=== PATIENT | male | born 1955 | race Caucasian/White ===

== ENCOUNTER 2016-03-22 22:13 | Emergency (ER) | payer OTHER ==
[~2016-03-22] VITALS: Ht 182.8 cm; Wt 104.3 kg
--- NOTE | ~2016-03-22 | EKG ---
[place], [place] ELECTROCARDIOGRAM REPORT NAME: NÉSTOR MEDEROS UNIT #: [id number] ROOM: DOCTOR: BILL CALLOWAY MD BIRTHDATE: [birth year] DOS: 03/22/2016 TIME: 2341 hours. Normal sinus rhythm at 74 beats per minute. An intraventricular conduction defect with QRS of 132 milliseconds. An abnormal ECG. No previous tracing is available for comparison. BILL CALLOWAY MD CM:EKGRPT:ELECTROCARDIOGRAM REPORT [id number] BILL CALLOWAY MD
[~2016-03-22 22:13] MED LIST: ASPIRIN ADULT L81 M1 PO; AUGMENTIN 500 M1 TAB PO; B12100 MC1 PO; FLEXERIL5 MG PO; LEVETIRACETAM250 MG PO; LORAZEPAM1 MG PO; MOTRIN800 MG PO; NITROSTAT0.4 MG SL; NORCO 10-325 T1 EACH PO; NORVASC5 MG PO; OMEPRAZOLE D/R20 MG PO; PREDNISONE20 M1 PO; PROAIR HFA8.5 GM IH; ROBITUSSIN AC 110 ML PO; TAGAMET400 MG PO; TRAMADOL HCL50 MG PO; VIBRAMYCIN100 MG PO; ZOCOR20 MG PO
[2016-03-23 00:13] LABS: BASO % 0.3 % (0.0-1.0); EOS # 0.1 10*3/uL (0.0-0.4); EOS % 0.3 % (1.0-4.0); HEMATOCRIT 42.8 % (42.0-52.0); IG # 0.1 10*3/uL (0.0-0.1); LYMPH # 0.8 10*3/uL (1.3-4.4); MEAN CELL VOLUME 94.7 fl (80.0-94.0); MEAN CORPUSCULAR HGB CONC 32.7 g/dl (33.0-37.0); MEAN PLATELET VOLUME 11.2 fl (9.6-12.3); MONO # 0.7 10*3/uL (0.1-1.0); MONO % 4.3 % (3.0-9.0); NEUT # 13.7 10*3/uL (2.3-7.9); NEUT % 89.6 % (47.0-73.0); PLATELET COUNT AUTOMATED 208 10*3/uL (130-400); RED BLOOD COUNT 4.52 10*6/uL (4.50-5.90); RED CELL DISTRI WIDTH 12.7 % (0-14.5); WHITE BLOOD COUNT 15.3 10*3/uL (4.8-10.8)
[2016-03-23 00:26] LABS: PROTHROMBIN TIME 10.2 SECONDS (9.0-12.4)
[2016-03-23 00:36] LABS: ALBUMIN 3.9 gm/dl (3.1-4.5); ALKALINE PHOSPHATASE 52 U/L (45-117); BILIRUBIN, TOTAL 0.3 mg/dl (0.2-1.0); BUN 20 mg/dl (7-24); CARBON DIOXIDE 30 mmol/L (21-32); CHLORIDE 102 mmol/L (98-107); CKMB 1.1 ng/ml (0.5-3.6); CPK 56 U/L (39-308); EST GLOM FILT AFRICAN AMERICAN > 60 ml/min; GLUCOSE 178 mg/dL (65-99); MAGNESIUM 2.1 mg/dL (1.5-2.1); POTASSIUM 4.4 mmol/L (3.5-5.1); SGOT/AST 8 IU/L (3-35); SGPT/ALT 22 U/L (12-78); SODIUM 139 mmol/L (136-145); TOTAL PROTEIN 7.1 gm/dL (6.4-8.2)
[2016-03-23 00:41] LABS: TROPONIN I < 0.015 ng/ml (<0.5)
[2016-03-23 02:29] LABS: BILIRUBIN NEGATIVE (NEGATIVE); BLOOD NEGATIVE (NEGATIVE); CLARITY SL CLOUDY (CLEAR); COLOR YELLOW (YELLOW); GLUCOSE NEGATIVE (NEGATIVE); KETONE TRACE (NEGATIVE); LEUKO ESTERASE NEGATIVE (NEGATIVE); NITRITE NEGATIVE (NEGATIVE); PROTEIN 1+ (NEGATIVE)
[2016-03-23 02:39] LABS: HYALINE CAST 45-50; URINE REFLEX COMMENT NO (NO)
== END 2016-03-23 05:36 | disposition short-term general hospital (02) ==
LOC: ED 22:13
PROVIDERS: Nurse Practitioner Family
DX: G40.909 Epilepsy, unspecified, not intractable, without status epilepticus (principal); F17.200 Nicotine dependence, unspecified, uncomplicated; F41.1 Generalized anxiety disorder; I10 Essential (primary) hypertension; J44.9 Chronic obstructive pulmonary disease, unspecified; E78.00 Pure hypercholesterolemia, unspecified; Z79.82 Long term (current) use of aspirin; Z98.890 Other specified postprocedural states

== ENCOUNTER 2019-03-14 18:05 | Emergency (ER) | payer MEDICARE ==
[~2019-03-14] VITALS: Ht 182.8 cm; Wt 99.8 kg
[2019-03-14] MEDS ORDERED: LISINOPRIL5 MG PO (18:42)
[2019-03-14] MEDS ORDERED: DULOXETINE HCL60 MG PO (18:43)
[2019-03-14] MEDS ORDERED: ATORVASTATIN CA80 M1 PO (18:43)
[2019-03-14] MEDS ORDERED: MELATONIN3 M3 PO (18:44)
[2019-03-14 18:45] LABS: BASO % 0.3 % (0.0-1.0); EOS % 0.1 % (1.0-4.0); HEMATOCRIT 47.1 % (42.0-52.0); HEMOGLOBIN 15.3 g/dl (14.0-18.0); LYMPH # 0.8 10*3/uL (1.3-4.4); LYMPH % 11.9 % (27.0-41.0); MEAN CORPUSCULAR HGB 29.9 pg (27.0-31.0); MEAN CORPUSCULAR HGB CONC 32.5 g/dl (33.0-37.0); MEAN PLATELET VOLUME 11.2 fl (9.6-12.3); MONO # 0.4 10*3/uL (0.1-1.0); NEUT # 5.7 10*3/uL (2.3-7.9); NEUT % 81.4 % (47.0-73.0); PLATELET COUNT AUTOMATED 232 10*3/uL (130-400); RED BLOOD COUNT 5.12 10*6/uL (4.50-5.90); RED CELL DISTRI WIDTH 12.4 % (0-14.5)
[2019-03-14] MEDS ORDERED: METFORMIN HCL500 M2 PO (18:45)
[2019-03-14] MEDS ORDERED: VITAMIN D350 MC1 PO (18:46)
[2019-03-14] MEDS ORDERED: NAPROXEN500 M1 PO (18:46)
[2019-03-14] MEDS ORDERED: FISH OIL CONC1000 M1 PO (18:47)
[2019-03-14 18:56] LABS: ACT PARTIAL THROMBO TIME 22.7 SECONDS (20.0-32.1); INTERNATIONAL NORM RATIO 0.9 (2.0-3.5)
[2019-03-14 19:24] LABS: ALBUMIN 3.8 gm/dl (3.1-4.5); ALKALINE PHOSPHATASE 83 U/L (45-117); BUN 22 mg/dl (7-24); CHLORIDE 101 mmol/L (98-107); CREATININE 1.27 mg/dL (0.70-1.30); LIPASE 90 U/L (73-393); POTASSIUM 3.6 mmol/L (3.5-5.1); SGOT/AST 18 IU/L (3-35); SGPT/ALT 33 U/L (12-78); SODIUM 137 mmol/L (136-145); TOTAL PROTEIN 7.4 gm/dL (6.4-8.2); TROPONIN I < 0.015 ng/ml (<0.045)
== END 2019-03-14 20:05 | disposition short-term general hospital (02) ==
LOC: ED 18:05
PROVIDERS: Nurse Practitioner Family
DX: I63.9 Cerebral infarction, unspecified (principal); R42 Dizziness and giddiness; I25.2 Old myocardial infarction; E78.5 Hyperlipidemia, unspecified; E11.9 Type 2 diabetes mellitus without complications; I10 Essential (primary) hypertension; J44.9 Chronic obstructive pulmonary disease, unspecified; F17.200 Nicotine dependence, unspecified, uncomplicated; Z79.82 Long term (current) use of aspirin; Z79.899 Other long term (current) drug therapy; Z98.61 Coronary angioplasty status

== ENCOUNTER 2019-11-22 14:34 | Inpatient (IN) | payer OTHER, MEDICARE ==
[~2019-11-22] VITALS: Ht 172.7 cm; Wt 112.9 kg
[~2019-11-22 14:34] MED LIST changes: +ATORVASTATIN CA80 M1 PO; +DULOXETINE HCL60 MG PO; +FISH OIL CONC1000 M1 PO; +LISINOPRIL5 MG PO; +MELATONIN3 M3 PO; +METFORMIN HCL500 M2 PO; +NAPROXEN500 M1 PO; +VITAMIN D350 MC1 PO
[2019-11-22 14:37] VITALS: BP 165/127
--- NOTE | 2019-11-22 14:58 | NUR ---
THE PATIENT WAS GIVEN TWO CUPS OF ORANGE JUICE WITH 2 ADDED SUGARS TO EACH CUP
[2019-11-22 15:08] LABS: BASO % 0.3 % (0.0-1.0); EOS # 0.1 10*3/uL (0.0-0.4); EOS % 0.5 % (1.0-4.0); HEMATOCRIT 34.3 % (42.0-52.0); LYMPH # 0.3 10*3/uL (1.3-4.4); MEAN CORPUSCULAR HGB 28.1 pg (27.0-31.0); MEAN CORPUSCULAR HGB CONC 30.9 g/dl (33.0-37.0); MEAN PLATELET VOLUME 9.2 fl (9.6-12.3); MONO # 0.9 10*3/uL (0.1-1.0); NEUT # 9.7 10*3/uL (2.3-7.9); NEUT % 87.4 % (47.0-73.0); PLATELET COUNT AUTOMATED 459 10*3/uL (130-400); RED BLOOD COUNT 3.77 10*6/uL (4.50-5.90); RED CELL DISTRI WIDTH 13.4 % (0-14.5)
--- NOTE | 2019-11-22 15:20 | NUR ---
THE PATIENT WAS GIVEN HIS LUNCH TRAY
[2019-11-22 15:23] VITALS: BP 140/80
[2019-11-22 15:27] LABS: ALBUMIN 2.1 gm/dl (3.1-4.5); CREATININE 11.2 mg/dL (0.70-1.30); TOTAL PROTEIN 6.5 gm/dL (6.4-8.2)
--- NOTE | 2019-11-22 16:11 | NUR ---
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
[2019-11-22 16:53] VITALS: BP 140/80
[2019-11-22 17:10] VITALS: BP 140/80
--- NOTE | 2019-11-22 17:10 | NUR ---
A 63 YO MALE, admitted to , under the services of CLEM Neumann DO with a diagnosis of 1710. Chief complaint is LOW BLOOD SUGAR THIS MORNING, DIFFICULTY URINATING. Patient arrived via stretcher from ER. Monitor applied. Initial assessment completed. Vital signs taken and recorded. CLEM NEUMANN DO notified of admission to the unit. Orders received. See assessment for past medical history, medications and allergies. Patient and/or family oriented to unit. [facility]. Clothing/patient valuable form completed. MARGARITA SAUCEDA
--- NOTE | 2019-11-22 17:55 | NUR ---
ATTEMPTED SINCLAIR CATHETER INSERTION W/16FRENCH, UNSUCCESSFUL DUE TO MEETING RESISTANCE. ATTEMPTED INSERTION OF COUDE CATHETER, DR. REED ALSO ATTEMPTED THE INSERTION OF COUDE CATHETER, UNSUCCESSFUL DUE TO MEETING RESISTANCE. PATIENT THEN TO CT FOR CT ABDOMEN TO ASSESS BLADDER. DR. REED SPEAKING WITH DR. DENT RE: CATHETER INSERTION. WILL ATTEMPT STRAIGHT CATHETERIZATION WHEN PATIENT RETURNS FROM CT. URINE SAMPLES ARE ORDERED FOR WHEN/IF URINE OBTAINED.
--- NOTE | 2019-11-22 18:29 | NUR ---
PATIENT RETURNED FROM CT, ATTEMPTED TO STRAIGHT CATHETERIZE, UNSUCCESSFUL DUE TO RESISTANCE MET. DR. PEMBERTON AND DR. DENT NOTIFIED. BLADDER SCANNED FOR 113ML URINE AND NOTIFIED DR. DENT OF RESULT. OBTAINED ORDER FROM DR. DENT TO CALL RESULT OF CT ABDOMEN AND HOLD IVF'S UNTIL THE RESULT IS CALLED TO HER. PER DR. DENT PATIENT MAY NEED TRANSFERRED TO [facility], [facility], OR [facility] FOR SERVICES OF A UROLOGIST DEPENDING ON THE CT SCAN.
--- NOTE | 2019-11-22 18:43 | NUR ---
SPOKE WITH PATIENT'S RE: PATIENT'S HOME MEDS LIST. PER HER, PATIENT IS AWAITING BLADDER SURGICAL INTERVENTION, [facility] ARE AWAITING MEDICAL CLEARANCE FROM NEUROLOGIST RE: SEIZURE DISORDER, DIRECTOR RADIATION ONCOLOGY, AND STAPLER HAND RE: HIGH POTASSIUM. PER HER, PATIENT HAS HAD THIS PAST WEEK LABS, EKG AND A CT ABDOMEN AT [facility]. DR. PEMBERTON MADE AWARE OF THIS, AND PER DR. PEMBERTON, ARRANGEMENTS ARE BEING MADE TO TRANSFER TO [facility].
--- NOTE | 2019-11-22 18:52 | NUR ---
MULTIPLE SCABBED AREAS TO RIGHT UPPER AND FOREARM, RIGHT DECKER AND LEFT ANKLE. PATIENT STATES DOG SCRATCHES HIM. PATIENT REFUSED WOUND PHOTOGRAPHY.
--- NOTE | 2019-11-22 19:04 | NUR ---
BEDSIDE GLUCOSE RESULT 63 AT 1859. PATIENT DENIES ANY S/S HYPOGLYCEMIA, SKIN WARM AND DRY PRESENTLY. PROVIDED 4OZ. ORANGE JUICE AND CHARLIE CRACKERS AND PEANUT BUTTER. MEAL TRAY HAS ARRIVED.
[2019-11-22] MEDS ORDERED: PROAIR HFA8.5 GM INH (19:51)
[2019-11-22] MEDS ORDERED: KEPPRA750 MG PO (19:52)
[2019-11-22] MEDS ORDERED: Amaryl2 MG PO (19:54)
[2019-11-22] MEDS ORDERED: PANTOPRAZOLE SO40 MG PO (19:54)
[2019-11-22] MEDS ORDERED: CLOPIDOGREL75 MG PO (19:54)
[2019-11-22 20:00] VITALS: BP 138/75
--- NOTE | 2019-11-22 20:02 | NUR ---
TRIED TO CALL DR YEUNG. NO ANSWER. DR PEMBERTON CALLED AND REQUESTED THAT [facility] FACES[facility]ET FAXED OVER.
--- NOTE | 2019-11-22 20:12 | NUR ---
DR YEUNG CALLED. UPDATED HER ON PATIENT'S CT OF THE ABDOMEN AND THAT PER DR PEMBERTON THE PLAN IS TO TRANSFER THE PATIENT TO [facility]. DR YEUNG AGREED WITH THIS. NO FURTHER ORDERS.
--- NOTE | 2019-11-22 21:14 | NUR ---
NOTIFIED DR LILLY THAT PATIENT'S MED REC WAS [facility] NURSE MARGARITA Wong
--- NOTE | 2019-11-22 23:40 | NUR ---
PATIENT'S BLOOD GLUCOSE 36, RECHECKED AND IT WAS 33. NOTIFIED DR LILLY THAT THERE WERE NO ORDERS. SHE GAVE ORDERS TO GIVE PATIENT AN AMP OF D50. PATIENT CURRENTLY DRINKING OJ, ASYMPTOMATIC.
--- NOTE | 2019-11-22 23:40 | NUR ---
D50 GIVEN FOR BLOOD SUGAR OF 33. PATIENT IS ASYMPTOMATIC. DR LILLY HAS ORDERED LABS FOR 2355-URGENT. WILL REASSES BLOOD SUGAR.
[2019-11-23] VITALS: BP 139/77
[2019-11-23 00:27] LABS: ALBUMIN 2.1 gm/dl (3.1-4.5); CREATININE 11.6 mg/dL (0.70-1.30); POTASSIUM 5.2 mmol/L (3.5-5.1); TOTAL PROTEIN 6.6 gm/dL (6.4-8.2)
--- NOTE | 2019-11-23 02:23 | NUR ---
PER DR LILLY, PUT IN ORDER FOR PATIENT'S DISCHARGE. PATIENT IS BEING DISCHARGED AND TRANSFERRED TO [facility] BY AMBULANCE.
--- NOTE | 2019-11-23 02:57 | NUR ---
Discharge instructions reviewed with patient/family. Patient receptive and verbalizes understanding. Follow-up care arranged. Written instructions given to patient/family. 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 DISCHARGED BY AMBULANCE TO [facility]. FAMILY, TANIA, UPDATED ON STATUS OF PATIENT. REPORT GIVEN TO NURSE AT [facility]. KATHRYN BARRETT
--- NOTE | 2019-11-23 02:58 | NUR ---
PATIENT HAS LEFT THE FLOOR.
--- NOTE | 2019-11-23 03:10 | NUR ---
REPORT GIVEN TO NURSE AT [facility]. NO FURTHER QUESTIONS. 5TH FLOOR PHONE NUMBER TO [facility] GIVEN TO NURSE INCASE SHE HAD ANY QUESTIONS.
== END 2019-11-23 03:52 | disposition short-term general hospital (02) | DRG 683 ==
LOC: ED 14:34 → EDHOLD 16:09 → 5E 16:24
PROVIDERS: Internal Medicine; Nurse Practitioner Family; ADMIT Family Medicine; ATTEND Family Medicine
DX: N17.0 Acute kidney failure with tubular necrosis (principal); E44.0 Moderate protein-calorie malnutrition; E11.649 Type 2 diabetes mellitus with hypoglycemia without coma; N13.30 Unspecified hydronephrosis; I25.10 Atherosclerotic heart disease of native coronary artery without angina pectoris; J44.9 Chronic obstructive pulmonary disease, unspecified; K21.9 Gastro-esophageal reflux disease without esophagitis; F41.1 Generalized anxiety disorder; N32.89 Other specified disorders of bladder; R34 Anuria and oliguria; E87.5 Hyperkalemia; R00.0 Tachycardia, unspecified; I10 Essential (primary) hypertension; D47.3 Essential (hemorrhagic) thrombocythemia; D50.9 Iron deficiency anemia, unspecified; E78.00 Pure hypercholesterolemia, unspecified; G40.909 Epilepsy, unspecified, not intractable, without status epilepticus; E83.39 Other disorders of phosphorus metabolism; N32.0 Bladder-neck obstruction; Z82.49 Family history of ischemic heart disease and other diseases of the circulatory system; Z95.1 Presence of aortocoronary bypass graft; Z83.3 Family history of diabetes mellitus; Z68.37 Body mass index [BMI] 37.0-37.9, adult; Z79.899 Other long term (current) drug therapy